=== PATIENT | female | born 1975 | race Caucasian/White ===

== ENCOUNTER 2025-04-17 12:11 | Inpatient (IN) | payer MEDICAID, OTHER ==
[~2025-04-17] VITALS: Ht 162.6 cm; Wt 78.2 kg
[~2025-04-17 12:11] MED LIST: ARIP15TA27 PO; MEMA5TAB41 PO; QUET300T2 PO; SERT-162 PO
[2025-04-17 13:00] LABS: COVID AG,FIA SOURCE NASAL SWAB
[2025-04-17 14:00] LABS: PLATELET COUNT (AUTO) 215 K/uL (150-450); RED BLOOD CELL COUNT(AUTO) 4.54 MIL/uL (4.00-5.20); RED CELL DISTRIBUTION WIDTH 13.9 % (11.5-14.5); WHITE BLOOD COUNT (AUTO) 7.2 K/uL (4.5-11.0)
[2025-04-17 14:04] LABS: CALCIUM, TOTAL 8.9 mg/dL (8.8-10.5); CREATININE 0.70 mg/dL (0.60-1.30); GLOMERULAR FILTR. RATE CALC > 60 mL/min (>60); GLUCOSE,RANDOM 239 mg/dL (70-110); SODIUM SERUM 136 mmol/L (136-145); UREA NITROGEN, BLOOD 14 mg/dL (7-18)
[2025-04-17 15:52] LABS: SARS-COV2 (COVID) ANTIGEN,FIA Negative (Negative)
[2025-04-17 16:13] LABS: APPEARANCE,URINE CLEAR (CLEAR); GLUCOSE, URINE (UA) >=1000 mg/dL (NEGATIVE); LEUKOCYTE ESTERASE ,URINE NEGATIVE (NEGATIVE); NITRATE,URINE NEGATIVE (NEGATIVE); OCCULT BLOOD,URINE NEGATIVE (NEGATIVE); PH,URINE DRUG SCREEN 6.5 (5.0-8.0); SPECIFIC GRAVITIY, URINE 1.031 (1.003-1.030)
[2025-04-17 16:20] LABS: AMPHET/METH SCREEN,URINE NEGATIVE (NEGATIVE); BARBITURATE SCREEN, URINE NEGATIVE (NEGATIVE); CANNABINOID SCREEN,URINE NEGATIVE (NEGATIVE); COCAINE SCREEN,URINE NEGATIVE (NEGATIVE); METHADONE SCREEN, URINE NEGATIVE (NEGATIVE)
[2025-04-17 16:22] LABS: ALCOHOL, URINE DRUG SCREEN NEGATIVE (NEGATIVE)
[2025-04-17 16:43] LABS: SQUAMOUS EPITHELIAL CELL,UR Few /LPF (None Seen)
[2025-04-17] MEDS ORDERED: OLANZapine 5 MG RAPDIS TABLET PO PRN (18:45)
[2025-04-17] MEDS ORDERED: ZOLPIDEM TARTRATE 10 MG TABLET PO PRN (18:45)
[2025-04-17] MEDS: DIVALPROEX SODIUM 500 MG ER TABLET PO SCH (22:04)
[2025-04-17] MEDS: OLANZapine 5 MG RAPDIS TABLET PO SCH (22:05)
[2025-04-17] MEDS: GABAPENTIN 300 MG CAPSULE PO SCH (22:05)
[2025-04-17 22:15] VITALS: O2SAT 99
[2025-04-18] VITALS (12 sets, daily range): BP systolic 121–162; BP diastolic 78–97; PULSE 57–83; RESP 16–18; TEMP 96.8–99.1; O2SAT 96–100
[2025-04-18] MEDS ORDERED: INFLUENZA VIRUS VACCINE TVS (6MO+) 2025-26/PF 45 MCG/0.5 ML SYRINGE IM. ONE (04:30)
[2025-04-18 06:25] LABS: GLUCOMETER DEV NAME(LOC) BV2S.; GLUCOSE,POINT OF CARE 220 MG/DL (70-110)
[2025-04-18] MEDS: PALIPERIDONE PALMITATE 234 MG/1.5 ML SYRINGE IM ONE (10:46)
[2025-04-18] MEDS ORDERED: GLUCAGON,HUMAN RECOMBINANT 1 MG VIAL IM PRN (14:30)
[2025-04-18] MEDS: INSULIN LISPRO 100 UNITS/ML SQ PRN (16:40)
[2025-04-18 22:00] LABS: GLUCOMETER DEV NAME(LOC) BV2S.; GLUCOSE,POINT OF CARE 224 MG/DL (70-110)
[2025-04-19 01:40] VITALS: BP 122/85; PULSE 79; RESP 18; TEMP 98.7; TEMP 99; O2SAT 97
[2025-04-19 05:40] VITALS: BP 139/86; PULSE 68; RESP 18; TEMP 98.8; O2SAT 99
[2025-04-19 06:20] LABS: GLUCOMETER DEV NAME(LOC) BV2S.; GLUCOSE,POINT OF CARE 153 MG/DL (70-110)
[2025-04-19 11:41] LABS: GLUCOMETER DEV NAME(LOC) BV2S.; GLUCOSE,POINT OF CARE 147 MG/DL (70-110)
[2025-04-19 13:02] VITALS: BP 132/95; PULSE 71; RESP 17; TEMP 99; O2SAT 98
[2025-04-19 18:06] LABS: GLUCOMETER DEV NAME(LOC) BV2S.; GLUCOSE,POINT OF CARE 154 MG/DL (70-110)
[2025-04-19 20:23] VITALS: BP 141/106; PULSE 76; RESP 18; TEMP 98.7; O2SAT 99
[2025-04-19 21:00] LABS: GLUCOMETER DEV NAME(LOC) BV2S.; GLUCOSE,POINT OF CARE 118 MG/DL (70-110)
[2025-04-20 06:05] LABS: GLUCOMETER DEV NAME(LOC) BV2S.; GLUCOSE,POINT OF CARE 159 MG/DL (70-110)
[2025-04-20 12:20] LABS: GLUCOMETER DEV NAME(LOC) BV2S.; GLUCOSE,POINT OF CARE 109 MG/DL (70-110)
[2025-04-20 17:00] LABS: GLUCOMETER DEV NAME(LOC) BV2S.; GLUCOSE,POINT OF CARE 108 MG/DL (70-110)
[2025-04-20 18:30] VITALS: BP 118/72; PULSE 82; RESP 18; TEMP 98.3; O2SAT 97
[2025-04-20 20:12] VITALS: BP 144/104; PULSE 83; RESP 18; TEMP 98; O2SAT 98
[2025-04-20 22:16] LABS: GLUCOMETER DEV NAME(LOC) BV2S.; GLUCOSE,POINT OF CARE 176 MG/DL (70-110)
[2025-04-21 07:41] LABS: GLUCOMETER DEV NAME(LOC) BV2S.; GLUCOSE,POINT OF CARE 123 MG/DL (70-110)
[2025-04-21] MEDS ORDERED: ACETAMINOPHEN 325 MG TABLET PO PRN (10:45)
[2025-04-21] MEDS ORDERED: GuaiFENesin/D-METHORPHAN [SUGAR-FREE] 200-20MG/10 ML SYRUP UDCUP PO PRN (10:45)
[2025-04-21] MEDS ORDERED: PROMETHAZINE HCL 25 MG TABLET PO PRN (10:45)
[2025-04-21] MEDS ORDERED: LOPERAMIDE HCL 2 MG CAPSULE PO PRN (10:45)
[2025-04-21] MEDS ORDERED: MAG HYDROX/ALUMINUM HYD/SIMETH ES 30 ML SUSPENSION UDCUP PO PRN (10:45)
[2025-04-21 10:53] VITALS: BP 143/99; RESP 16
[2025-04-21 11:50] LABS: GLUCOMETER DEV NAME(LOC) BV2S.; GLUCOSE,POINT OF CARE 151 MG/DL (70-110)
[2025-04-21] MEDS: THIAMINE 100 MG TABLET PO SCH (16:07)
[2025-04-21 16:51] LABS: GLUCOMETER DEV NAME(LOC) BV2S.; GLUCOSE,POINT OF CARE 162 MG/DL (70-110)
[2025-04-21 20:11] VITALS: RESP 17
[2025-04-21 20:35] LABS: GLUCOMETER DEV NAME(LOC) BV2S.; GLUCOSE,POINT OF CARE 182 MG/DL (70-110)
[2025-04-22] VITALS (7 sets, daily range): BP systolic 142–181; BP diastolic 96–120; PULSE 79–86; RESP 16–18; TEMP 97.5–99.1; O2SAT 99–100
[2025-04-22 06:46] LABS: GLUCOMETER DEV NAME(LOC) BV2S.; GLUCOSE,POINT OF CARE 183 MG/DL (70-110)
[2025-04-22] MEDS: FOLIC ACID 1 MG TABLET PO SCH (09:00)
[2025-04-22] MEDS: MULTIVITAMINS WITH MINERALS, THERAPEUTIC TABLET PO SCH (09:00)
[2025-04-22 16:56] LABS: GLUCOMETER DEV NAME(LOC) BV2S.; GLUCOSE,POINT OF CARE 199 MG/DL (70-110)
[2025-04-22] MEDS: PALIPERIDONE PALMITATE 156 MG/ML SYRINGE IM ONE (17:49)
[2025-04-22] MEDS: MAGNESIUM HYDROXIDE SUSPENSION 30 ML UDCUP PO PRN (19:55)
[2025-04-22] MEDS: DIVALPROEX SODIUM 500 MG ER TABLET PO SCH (20:21)
[2025-04-22 21:11] LABS: GLUCOMETER DEV NAME(LOC) BV2S.; GLUCOSE,POINT OF CARE 159 MG/DL (70-110)
[2025-04-23] MEDS ORDERED: DENTURE ADHESIVE 68 GM CREAM DT PRN (06:30)
[2025-04-23 06:50] LABS: GLUCOMETER DEV NAME(LOC) BV2S.; GLUCOSE,POINT OF CARE 125 MG/DL (70-110)
[2025-04-23 08:31] VITALS: BP 134/78; PULSE 99; RESP 17; TEMP 97.1; O2SAT 96
[2025-04-23 16:50] LABS: GLUCOMETER DEV NAME(LOC) BV2S.; GLUCOSE,POINT OF CARE 199 MG/DL (70-110)
[2025-04-23 20:15] VITALS: BP 144/96; PULSE 83; RESP 17; TEMP 98.7; O2SAT 99
[2025-04-23 21:31] LABS: GLUCOMETER DEV NAME(LOC) BV2S.; GLUCOSE,POINT OF CARE 200 MG/DL (70-110)
[2025-04-24 06:45] LABS: GLUCOMETER DEV NAME(LOC) BV2S.; GLUCOSE,POINT OF CARE 151 MG/DL (70-110)
[2025-04-24 08:29] VITALS: BP 147/96; PULSE 91; RESP 18; TEMP 97.2; O2SAT 99
[2025-04-24 11:26] LABS: GLUCOMETER DEV NAME(LOC) BV2S.; GLUCOSE,POINT OF CARE 139 MG/DL (70-110)
[2025-04-24 17:11] LABS: GLUCOMETER DEV NAME(LOC) BV2S.; GLUCOSE,POINT OF CARE 150 MG/DL (70-110)
[2025-04-24] MEDS ORDERED: DIVA-153 PO (17:23)
[2025-04-24] MEDS ORDERED: GABA-1181 PO (17:23)
[2025-04-24] MEDS ORDERED: FLUO-418 PO (17:23)
[2025-04-24] MEDS ORDERED: QUET200T30 PO (17:26)
[2025-04-24] MEDS ORDERED: AMLO-258 PO (17:46)
[2025-04-24] MEDS ORDERED: PIOG30TA10 PO (17:46)
[2025-04-25] MEDS ORDERED: PIOGLITAZONE HCL 30 MG TABLET PO SCH (09:00)
== END 2025-04-24 18:34 | disposition home or self-care (01) | DRG 761 ==
LOC: EMS 12:11 → B2S 04-18 01:57
PROVIDERS: ADMIT Psychiatry & Neurology Psychiatry; ATTEND Psychiatry & Neurology Psychiatry
PROC: GZHZZZZ Group Psychotherapy (ICD-10-PCS; principal; 2025-04-18)
PROC: GZ58ZZZ Individual Psychotherapy, Cognitive-Behavioral (ICD-10-PCS; 2025-04-18)
PROC: GZ56ZZZ Individual Psychotherapy, Supportive (ICD-10-PCS; 2025-04-19)
DX: F25.9 Schizoaffective disorder, unspecified (principal); R45.851 Suicidal ideations; K74.60 Unspecified cirrhosis of liver; E11.9 Type 2 diabetes mellitus without complications; I10 Essential (primary) hypertension; F41.9 Anxiety disorder, unspecified; Z20.822 Contact with and (suspected) exposure to COVID-19; F17.200 Nicotine dependence, unspecified, uncomplicated; F31.9 Bipolar disorder, unspecified; K76.0 Fatty (change of) liver, not elsewhere classified; Z60.8 Other problems related to social environment; Z55.9 Problems related to education and literacy, unspecified; Z59.9 Problem related to housing and economic circumstances, unspecified; Z63.9 Problem related to primary support group, unspecified; Z65.3 Problems related to other legal circumstances; Z87.59 Personal history of other complications of pregnancy, childbirth and the puerperium; Z90.49 Acquired absence of other specified parts of digestive tract; Z88.0 Allergy status to penicillin; Z79.899 Other long term (current) drug therapy; Z88.8 Allergy status to other drugs, medicaments and biological substances
CPT/HCPCS: 80048; 80164; 80307; 81001; 82962; 83036; 84703; 85025; 99285; G0480; J1610

== ENCOUNTER → 2025-04-22 | Emergency (ER) | payer MEDICAID, OTHER ==
[~2025-04-22] VITALS: Ht 161.3 cm; Wt 79.4 kg
[~2025-04-22] MED LIST changes: +AMLO-258 PO; +DIVA-153 PO; +FLUO-418 PO; +GABA-1181 PO; +PIOG30TA10 PO; +QUET200T30 PO
[2025-04-22 08:19] LABS: PLATELET COUNT (AUTO) 202 K/uL (150-450); RED BLOOD CELL COUNT(AUTO) 4.32 MIL/uL (4.00-5.20); RED CELL DISTRIBUTION WIDTH 14.3 % (11.5-14.5); WHITE BLOOD COUNT (AUTO) 8.1 K/uL (4.5-11.0)
[2025-04-22 08:26] LABS: CALCIUM, TOTAL 8.6 mg/dL (8.8-10.5); CREATININE 0.65 mg/dL (0.60-1.30); GLOMERULAR FILTR. RATE CALC > 60 mL/min (>60); GLUCOSE,RANDOM 206 mg/dL (70-110); SODIUM SERUM 136 mmol/L (136-145); UREA NITROGEN, BLOOD 13 mg/dL (7-18)
[2025-04-22 08:32] LABS: ASPARTATE AMINOTRANSFERASE 10 U/L (15-37); TOTAL PROTEIN, SERUM 7.0 g/dL (6.4-8.2)
[2025-04-22 08:34] LABS: ALCOHOL, BLOOD (SERUM) < 3 mg/dL (0-10)
[2025-04-22 08:36] LABS: TROPONIN I-HIGH SENSITIVITY 5 ng/L (<51)
[2025-04-22 09:13] LABS: APPEARANCE,URINE CLEAR (CLEAR); GLUCOSE, URINE (UA) >=1000 mg/dL (NEGATIVE); LEUKOCYTE ESTERASE ,URINE NEGATIVE (NEGATIVE); NITRATE,URINE NEGATIVE (NEGATIVE); OCCULT BLOOD,URINE NEGATIVE (NEGATIVE); PH,URINE DRUG SCREEN 6.5 (5.0-8.0); SPECIFIC GRAVITIY, URINE 1.023 (1.003-1.030)
[2025-04-22 09:18] LABS: SQUAMOUS EPITHELIAL CELL,UR Few /LPF (None Seen)
[2025-04-22 09:29] LABS: ALCOHOL, URINE DRUG SCREEN NEGATIVE (NEGATIVE); AMPHET/METH SCREEN,URINE NEGATIVE (NEGATIVE); BARBITURATE SCREEN, URINE NEGATIVE (NEGATIVE); CANNABINOID SCREEN,URINE NEGATIVE (NEGATIVE); COCAINE SCREEN,URINE NEGATIVE (NEGATIVE); METHADONE SCREEN, URINE NEGATIVE (NEGATIVE)
[2025-04-22 10:18] LABS: TROPONIN I-HIGH SENSITIVITY 6 ng/L (<51)
[2025-04-22 10:58] VITALS: TEMP 98.7
[2025-04-22 14:00] VITALS: BP 150/98; PULSE 76; RESP 16; O2SAT 96
== END | disposition still patient (30) ==
LOC: EMS 07:51
DX: R42 Dizziness and giddiness (principal); F20.9 Schizophrenia, unspecified; E11.9 Type 2 diabetes mellitus without complications; F31.9 Bipolar disorder, unspecified; F41.9 Anxiety disorder, unspecified; I10 Essential (primary) hypertension; F17.210 Nicotine dependence, cigarettes, uncomplicated; Z90.49 Acquired absence of other specified parts of digestive tract; Z88.0 Allergy status to penicillin; Z79.899 Other long term (current) drug therapy
CPT/HCPCS: 99285; 70450; 71045; 80048; 80076; 81001; 82140; 84484; 85025; 36415; 93005; 80307; G0480